=== PATIENT | male | born 1970 | race Caucasian/White ===

== ENCOUNTER 2017-10-08 15:29 | Emergency (ER) | payer OTHER ==
[2017-10-08 15:39] VITALS: BP 139/85
--- NOTE | 2017-10-08 16:33 | ED Physician Documentation ---
PD HPI HEENT - Stated complaint Stated Complaint: BILAT EAR PX - Chief complaint Chief Complaint: Heent - History obtained from History obtained from: Patient - History of Present Illness Timing - onset: How many days ago Timing - duration: Days Timing - details: Gradual onset, Still present Location: Right ear, Left ear Associated symptoms: Congestion, Other (difficulty hearing). No: Fever, Rhinorrhea Similar symptoms before: Has not had sx before Recently seen: Not recently seen Review of Systems Constitutional: denies: Fever, Chills Ears: reports: Loss of hearing, Ear pain. denies: Drainage/discharge, Tinnitus/ ringing Nose: reports: Congestion. denies: Rhinorrhea / runny nose Throat: denies: Sore throat Respiratory: denies: Cough GI: denies: Nausea, Vomiting, Diarrhea Skin: denies: Rash, Lesions PD PAST MEDICAL HISTORY - Past Medical History Cardiovascular: None Respiratory: None Neuro: None HEENT: None - Present Medications Home Medications: Ambulatory Orders Medication Instructions Recorded Confirmed Amoxicillin 500 mg PO TID #20 capsule 10/08/17 Cetirizine [ZyrTEC] 10 mg PO DAILY #20 tablet 10/08/17 Dexamethasone [Decadron] 4 mg PO DAILY #5 tablet 10/08/17 Fluticasone/Salmeterol [Advair 1 each IH 10/08/17 250-50 Diskus] Heart Burn Medication 10/08/17 Naproxen [Naprosyn] 500 mg PO BID PRN #20 tablet 10/08/17 - Allergies Allergies/Adverse Reactions: Allergies Allergy/AdvReac Type Severity Reaction Status Date / Time No Known Drug Allergies Allergy Verified 10/08/17 15:38 PD ED PE NORMAL - Vitals Vital signs reviewed: Yes - General General: Alert and oriented X 3, No acute distress, Well developed/nourished - HEENT HEENT: Pharynx benign. No: Ears normal (bulging ear drums but minimally red. ) - Neck Neck: Supple, no meningeal sign, No adenopathy - Cardiac Cardiac: RRR, No murmur - Respiratory Respiratory: Clear bilaterally - Derm Derm: Normal color, No rash Results - Vitals Vitals: Oxygen O2 Source Room air PD MEDICAL DECISION MAKING - ED course Complexity details: considered differential (Does not look angry red so could be viral or serous. Will treat as that and gave backup plan of Amox if not improving. ), d/w patient Departure - Departure Disposition: 01 Home, Self Care Clinical Impression: Acute pain of both ears Condition: Stable Record reviewed to determine appropriate education?: Yes Instructions: ED Otitis Media Serous Adult Prescriptions: Amoxicillin 500 mg PO TID #20 capsule Cetirizine [ZyrTEC] 10 mg PO DAILY #20 tablet Dexamethasone [Decadron] 4 mg PO DAILY #5 tablet Naproxen [Naprosyn] 500 mg PO BID PRN #20 tablet PRN Reason: Pain Comments: This looks more like fluid collection behind the eardrums which can be allergies or viral. It does not look bacterial at this point. Try Decadron anti-inflammatory and cetirizine antihistamine for the next several days. The short-term you can use naproxen for the pain and add Tylenol if needed. If is not improving over the next few days or you develop purulent nasal discharge, fevers, swollen glands, then also add the amoxicillin antibiotic. Forms: Activity restrictions Discharge Date/Time: 10/08/17 17:12
[2017-10-08] MEDS ORDERED: IBUPROFEN 600 MG TABLET PO STA (16:47)
[2017-10-08] MEDS ORDERED: CETIRIZINE 10 MG TABLET PO STA (16:47)
[2017-10-08] MEDS ORDERED: DEXAMETHASONE 10 MG/ML VIAL PO STA (16:47)
[2017-10-08] MEDS ORDERED: CHERRY SYRUP 10 ML UDC PO ONE (17:11)
== END 2017-10-08 17:12 | disposition home or self-care (01) ==
LOC: ED 15:29
DX: H92.03 Otalgia, bilateral (principal); R09.81 Nasal congestion
CPT/HCPCS: 99281; 99283; A9270